=== PATIENT | female | born 1995 | race Caucasian/White ===

== ENCOUNTER 2024-11-16 15:34 | Observation (INO) | payer MEDICAID, SELFPAY ==
[2024-11-16] VITALS (60 sets, daily range): BP systolic 111–131; BP diastolic 64–93; PULSE 81–107; RESP 17–99; TEMP 36.9–37.1; O2SAT 97–100; BMI 22.7
--- NOTE | 2024-11-16 16:11 | XR_ITS ---
Examination: Complete OB ultrasound greater than 14 weeks Date and time of exam: November 16, 2024 1742 hrs. Indications: Labor evaluation, pelvic pain and pressure back pain beginning last night, diagnosis labor Findings: Viable intrauterine single fetus with single amniotic sac presentation cephalic spine maternal left Cardiac motion 150 BPM Placenta fundal grade 2 Umbilical cord insertion 3 vessel seen Amniotic fluid index 7.5 cm Mild hydronephrosis Ovaries obscured by bowel gas. Composite estimated gestational age based on BPD, head circumference, abdominal circumference, femur length is 34 weeks 0 days Estimated weight 2372.5 g. Survey of intracranial anatomy, spinal anatomy, abdominal anatomy, four-chamber heart performed with no abnormalities identified. Impression: Viable intrauterine gestation cephalic presentation Placenta fundal grade 2 no abruption Estimated gestational age 34 weeks 0 days Estimated weight 2372.5 g.
[2024-11-16] MEDS: TERBUTALINE SULF INJ 1 MG/ML VIAL 0.25 MG SC (16:27)
[2024-11-16] MEDS: BETAMET ACET/BETAMET NA PH (Celestone) 6 MG/ML VIAL 12 MG IM (16:28)
[2024-11-16] MEDS: Ampicillin Inj 2,000 MG in SODIUM CHLORIDE 0.9% (P) 100 ML 200 MG IV (16:29)
[2024-11-16 16:49] LABS: Basophils % (Auto) 0 % (0-2.5); Eosinophils % (Auto) 0 % (0-10); Hematocrit 36.7 % (36.0-46.0); Hemoglobin 12.9 g/dL (12.0-16.0); Immature Granulocytes % (Auto) 1 % (0-0); Immature Granulocytes Auto 0.06 Thou/mm3 (0.00-0.00); Lymphocytes # (Auto) 0.7 Thou/mm3 (1.0-4.8); Lymphocytes % (Auto) 12 % (10-50); Mean Corpuscular HGB Conc 35.1 g/dl (31.0-37.0); Mean Corpuscular Hemoglobin 32.1 pg (25.0-35.0); Mean Corpuscular Volume 91 fL (80-100); Monocytes # (Auto) 0.3 Thou/mm3 (0.0-0.8); Monocytes % (Auto) 4 % (0-12); Neutrophils # (Auto) 5.1 Thou/mm3 (1.8-7.7); Neutrophils % (Auto) 83 % (37-80); Nucleated Red Blood Cell % 0 /100 WBC (0); Platelet Count 201 Thou/mm3 (140-440); RDW Standard Deviation 40.8 fL (36.4-46.3); Red Blood Count 4.02 Miln/mm3 (4.00-5.20); White Blood Count 6.1 Thou/mm3 (3.6-11.0)
[2024-11-16] MEDS: RINGERS LACTATED 1000 ML 1,000 ML 999 ML IV (17:25)
[2024-11-16 17:26] LABS: Syphilis Nonreactive (Nonreactive)
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
[2024-11-16] MEDS: Ampicillin Inj 1,000 MG in SODIUM CHLORIDE 0.9% (P) 50 ML 50 MG IV (20:58)
[2024-11-16 23:40] LABS: Amphetamine/Metham Scrn,Ur OB Negative (Negative); Benzoylecgonine Screen, Ur OB Negative (Negative); Opiate Screen,Urine OB Negative (Negative); THC Screen,Urine OB Positive (Negative)
[2024-11-16 23:41] LABS: THC U Confirm* See Sep Rpt
[2024-11-17] VITALS (259 sets, daily range): BP systolic 90–119; BP diastolic 52–80; PULSE 64–107; RESP 16–18; TEMP 36.6–36.9; O2SAT 92–100
[2024-11-17] MEDS: Ampicillin Inj 1,000 MG in SODIUM CHLORIDE 0.9% (P) 50 ML 50 MG IV ×6 (01:00→22:00)
--- NOTE | 2024-11-17 04:08 | PD.LDPN ---
Documentation for date of: 11/17/24 OB Labor Progress Note Pain Control Comments: 29 yo at 34+5 presents with contractions and back pain. HD2 No acute events overnight No leaking of fluid, VB. normal movement. Still having irregular contractions on monitor. Reports some pelvic discomfort pain. Pelvic Exam Amniotic membrane status: Intact Contractions Monitor mode: External Contraction frequency: 3-5 Contraction intensity: Mild Status status: Category l Assessment and Plan Comments: 29 yo at 34+5 presents with contractions and back pain concerning for labor. HD2 contractions vs labor: - Repeat exam this AM dilation is similar but station lower and more applied with increased pelvic pressure - Continue abx prophylaxis for GBS unknown and status - collect GBS, urine culture/UA, GC/CT, routine PTL labs - s/p BMZ #1 for ALPS, #2 today at 1630 - IVF and continuous monitoring - Pediatrics aware FWB: Category 1, continuous monitoring EFW 2372g c/w dates Pyelectasis: plan for follow-up VSD: plan for follow-up, pediatrics aware weight US weight pending Marijuana, tobacco, and alcohol use in - utox +THC - no signs or symptoms of withdrawal for any substances (intermittent use) History of scoliosis: will FYI anesthesia. Patient with full ROM, no history of surgeries VTE PPx: ambulation
[2024-11-17] MEDS: FAMOTIDINE INJ 10 MG/ML VIAL 2 ML 20 MG IVP (05:50)
[2024-11-17] MEDS: ONDANSETRON INJ 2 MG/ML INJ 2 ML 4 MG IV (05:50)
[2024-11-17] MEDS: ACETAMINOPHEN 325 MG TABLET 650 MG PO (09:19)
[2024-11-17] MEDS: RINGERS LACTATED 1000 ML 1,000 ML 999 ML IV (11:17)
[2024-11-17 16:03] LABS: Chlamydia trachomatis PCR Negative (Not Detect); Neisseria Gonorrhoeae DNA PCR Negative (Not Detect); Trichomonas Negative (Negative)
[2024-11-17] MEDS: BETAMET ACET/BETAMET NA PH (Celestone) 6 MG/ML VIAL 12 MG IM (16:28)
[2024-11-18] VITALS (18 sets, daily range): BP systolic 98–118; BP diastolic 67–76; PULSE 71–97; RESP 18–20; TEMP 36.6–36.8; O2SAT 97–100
--- NOTE | 2024-11-18 08:07 | XR_ITS ---
Examination: Biophysical profile, ultrasound Date and time of exam: November 18, 2024 0823 hours INDICATIONS: Labor evaluation, pelvic contractions beginning 2 days ago, diagnosis labor Technique: Multiple transabdominal sonographic images of the pelvis abdomen obtained. Attention is directed to the breathing movement, gross body movement, amniotic fluid volume and tone. Findings: Amniotic fluid index 11.5 cm Total biophysical profile is 8 of 8. breathing movement is 2. Gross body movement is 2. tone is 2. Qualitative amniotic fluid volume is 2 Impression: Biophysical profile is 8 of 8.
--- NOTE | 2024-11-19 16:00 | PD.LDDS ---
DS: Providers Provider Date of admission: 11/17/24 17:06 Primary care physician: Physician No Primary/Family Admitting Provider: Amalia Pacheco MD Attending Provider on Admission: Chetan Valdes MD Attending Provider on DC: Chetan Valdes MD Discharging Provider: Chetan Valdes MD DS: Diagnosis Problem List Completed Was Problem List Reviewed/Reconciled?: Yes Summary/Hosp Course Brief History: 29 yo at 34w5d has been admitted for 2 days. patient denies feeling any contractions . Time Spent with Patient Time attestation: Total time spent providing and/or coordinating discharge services: Exam Vital Signs Temp Pulse Resp BP Pulse Ox 98.2 F 74 18 118/76 98 11/18/24 08:47 11/18/24 08:51 11/18/24 08:47 11/18/24 08:51 11/18/24 09:25 Constitutional Constitutional: no acute distress Routine HEENT Exam Head: Present normocephalic and atraumatic Eye: Present EOMI and PERRL ENT: Present mucous membranes moist Routine Neck Exam Neck: Present supple and trachea midline Routine Respiratory Exam Respiratory: Present chest non-tender, lungs clear, normal breath sounds and no resp distress Routine Cardiovascular Exam Cardiovascular: Present RRR Routine Abdominal Exam Abdominal: Present soft and normoactive bowel sounds Routine Exam Comments: Cat 1 FHT Cervix unchanged 2 cm , over past 24 hours BPP done 06/12( NST showed a variable, for which BPP was done) Routine Extremities Exam Extremities: Present full ROM Routine Skin Exam Skin: Present intact, dry and warm Routine Neurological Exam Neurological: Present alert, oriented X3 and CN II-XII intact Routine Psychiatric Exam Psychiatric: Present normal affect and normal thought process Discharge Plan Plan Patient Disposition: HOME (Self Care) Prescriptions/Referrals Prescriptions/Med Rec: No Action famotidine 40 mg tablet 40 mg PO QDAY Patient Comments: TAKE 1 TABLET BY MOUTH EVERY DAY FOR 30 DAYS PNV cmb#95-ferrous fumarate-FA [] 28 mg iron- 800 mcg tablet 1 tab PO QDAY Patient Comments: TAKE 1 TABLET BY MOUTH EVERY DAY FOR 90 DAYS ondansetron 8 mg Film Referrals: No Primary/Family,Physician [Primary Care Provider] - Patient/Caregiver Discharge Instructions Other Discharge Diet Instructions: Return on 11/20/24 for NST at [facility] Education Materials: Kick Counts, Understanding Labor, Antepartum Discharge Print Language: Romanian Stand Alone Forms: Nanci Award Info., Patient Portal Info Letter Discharge Order Discharge Orders: Discharge (Routine); Ordered 11/18/24 Ordered By: Chetan Valdes Planned Discharge Date 11/18/24
== END 2024-11-18 09:48 | disposition home or self-care (01) ==
PROVIDERS: Admitting Provider Obstetrics & Gynecology; Visit Provider Student in an Organized Health Care Education/Training Program
DX: O47.03 False labor before 37 completed weeks of gestation, third trimester (principal); O35.EXX0 Maternal care for other (suspected) fetal abnormality and damage, fetal genitourinary anomalies, not applicable or unspecified; Z3A.34 34 weeks gestation of pregnancy; O99.891 Other specified diseases and conditions complicating pregnancy; M41.9 Scoliosis, unspecified; O99.323 Drug use complicating pregnancy, third trimester; F12.90 Cannabis use, unspecified, uncomplicated; O99.333 Smoking (tobacco) complicating pregnancy, third trimester; F17.200 Nicotine dependence, unspecified, uncomplicated; O99.313 Alcohol use complicating pregnancy, third trimester; F10.90 Alcohol use, unspecified, uncomplicated; Z91.419 Personal history of unspecified adult abuse
CPT/HCPCS: 36415; 59025; 59899; 76805; 76819; 80307; 85025; 86780; 86850; 86900; 86901; 87081; 87491; 87591; 87661; 94762; 96361; 96365; 96366; 96372; 96375; G0378; J0290; J0702; J2405; J3105; J3490; J7050; J7120; A9270

== ENCOUNTER 2024-11-20 09:10 | Outpatient (CLI) | payer MEDICAID, SELFPAY ==
[2024-11-20] VITALS (13 sets, daily range): BP systolic 110; BP diastolic 82; PULSE 67–82; RESP 18–99; TEMP 36.7; O2SAT 98–100; BMI 24.5
== END 2024-11-20 10:15 | disposition home or self-care (01) ==
LOC: S4S1 09:11 → S4SX 09:11
PROVIDERS: Referring Provider Student in an Organized Health Care Education/Training Program; Visit Provider Student in an Organized Health Care Education/Training Program
DX: Z34.03 Encounter for supervision of normal first pregnancy, third trimester (principal); Z36.9 Encounter for antenatal screening, unspecified; Z3A.35 35 weeks gestation of pregnancy
CPT/HCPCS: 59025

== ENCOUNTER 2024-11-23 11:51 | Outpatient (CLI) | payer MEDICAID, SELFPAY ==
[2024-11-23 11:55] VITALS: BMI 24.1
[2024-11-23 12:01] VITALS: BP 111/77; PULSE 71
[2024-11-23 12:17] VITALS: BP 111/77; PULSE 71; RESP 18; RESP 99; TEMP 36.6
[2024-11-23 12:19] VITALS: TEMP 36.6
--- NOTE | 2024-11-23 14:04 | ESPR_ITS ---
Documentation for date of: 11/23/24 OB Labor Progress Note Pain Control Comments: 29 yo at 35+4 presents with decreased FM and contractions. c/b pyelectasis, VSD Hx of THC use in Patient was admitted last week for PTL vs PT contractions and discharged home after no advancing cervical dilation. Was given BMZ. No infectious symptoms, no LOF, no VB. Pelvic Exam Comments: Unchanged, 2cm same from last week at discharge Status Comments: BSUS: cephalic, DVP 4.2cm, anterior placenta Incidental BPP 8/8 FHT: normal baseline, no decels, reactive [place]: irritable -> quiet after PO hydration CNM Management Details of MD consultation: 29 yo at 35+4 presents with decreased FM and contractions, not in PTL and with normal testing. contractions - no signs of labor - precautions reviewed - s/p BMZ Decreased movement - Reactive NST - normal DVP - Incidental US BPP 8/8 - Precautions reviewed Follow-up with OBGYN this week
== END 2024-11-23 14:12 | disposition home or self-care (01) ==
LOC: S4S1 11:52 → S4SX 11:52
PROVIDERS: PCP Family Medicine; Referring Provider Obstetrics & Gynecology; Visit Provider Obstetrics & Gynecology
DX: O36.8130 Decreased fetal movements, third trimester, not applicable or unspecified (principal); O47.03 False labor before 37 completed weeks of gestation, third trimester; Z3A.35 35 weeks gestation of pregnancy
CPT/HCPCS: 59025

== ENCOUNTER 2024-12-09 05:02 | Inpatient (IN) | payer MEDICAID, SELFPAY ==
[2024-12-09] VITALS (30 sets, daily range): BP systolic 0–170; BP diastolic 0–100; PULSE 66–111; RESP 16–99; TEMP 36.4–36.8; O2SAT 99–100; BMI 25.3
[2024-12-09 05:45] LABS: ROM Kit Lot # 57809118
[2024-12-09 05:46] LABS: ROM Swab Mixed By: BDR; Rupture of Fetal Membranes Positive (Negative); Swb Mxed in Solvent 1 min? Yes
[2024-12-09] MEDS: RINGERS LACTATED 1000 ML 1,000 ML 125 ML IV ×2 (06:10→07:05)
[2024-12-09] MEDS: fentaNYL CIT INJ 50 mCg/ML AMP 2ML 100 MCG IV ×2 (06:28→08:07)
[2024-12-09 06:33] LABS: Basophils % (Auto) 0 % (0-2.5); Eosinophils % (Auto) 0 % (0-10); Hematocrit 39.1 % (36.0-46.0); Hemoglobin 13.9 g/dL (12.0-16.0); Immature Granulocytes % (Auto) 1 % (0-0); Immature Granulocytes Auto 0.11 Thou/mm3 (0.00-0.00); Lymphocytes # (Auto) 2.5 Thou/mm3 (1.0-4.8); Lymphocytes % (Auto) 25 % (10-50); Mean Corpuscular HGB Conc 35.5 g/dl (31.0-37.0); Mean Corpuscular Hemoglobin 33.1 pg (25.0-35.0); Mean Corpuscular Volume 93 fL (80-100); Monocytes # (Auto) 0.5 Thou/mm3 (0.0-0.8); Monocytes % (Auto) 5 % (0-12); Neutrophils # (Auto) 6.8 Thou/mm3 (1.8-7.7); Neutrophils % (Auto) 68 % (37-80); Nucleated Red Blood Cell % 0 /100 WBC (0); Platelet Count 212 Thou/mm3 (140-440); RDW Standard Deviation 42.1 fL (36.4-46.3)
[2024-12-09] MEDS: TERBUTALINE SULF INJ 1 MG/ML VIAL 0.25 MG SC (06:50)
[2024-12-09 07:05] LABS: Amphetamine/Metham Scrn,Ur OB Negative (Negative); Benzoylecgonine Screen, Ur OB Negative (Negative); Opiate Screen,Urine OB Negative (Negative); THC Screen,Urine OB Positive (Negative)
[2024-12-09 07:06] LABS: THC U Confirm* See Sep Rpt
[2024-12-09 07:09] LABS: Syphilis Nonreactive (Nonreactive)
[2024-12-09] MEDS: OXYTOCIN in NS 20 units 20 UNIT/1,000 ML BAG 125 UNIT IV (09:02)
[2024-12-09] MEDS: LIDOCAINE HCL 1% 20 ML VIAL INFL (09:05)
[2024-12-09] MEDS: BENZO/LANO/ALOE (Dermoplast) 60 GM CAN 1 SPRAY TOP (09:14)
[2024-12-09] MEDS: IBUPROFEN TAB 400 MG TABLET 800 MG PO (09:15)
--- NOTE | 2024-12-09 09:32 | OBDSUM_ITS ---
Data ([facility]) Data Hx Section: No : 1 Para: 0 Term: 0 : 0 : 0 Delivery Data ([facility]) Labor Data ROM Date: 12/09/24 ROM Time: 04:00 Rupture Type: SROM Amniotic Fluid: Clear Delivery Data Labor Onset Stage 1 Date: 12/09/24 Labor Onset Stage 1 Time: 08:06 Labor Onset Stage 2 Date: 12/09/24 Labor Onset Stage 2 Time: 08:46 Delivery Date: 12/09/24 Delivery Time: 08:58 Placenta Delivery Date: 12/09/24 Placenta Delivery Time: 09:02 Delivered by: Emilia Cooper Delivery nurse: Tricia Heller Other staff at delivery: 2nd Nurse Other staff at delivery: Nurse Other staff at delivery: RT Other staff at delivery: 2nd Nurse Other staff at delivery: Fadumo Villa Other staff at delivery: Bella Tian Other staff at delivery: [email or web address] Other staff at delivery: [email or web address] Delivery Method Delivery: Vaginal Delivery Type: Spontaneous Anesthesia Type Primary Anesthesia: Local Placenta Placenta Sent for Examination: Yes Cord Sample: Cord Blood Obtained EBL Estimated blood loss (ml): 250 Umbilical Cord Nuchal Cord: x1 Body Cord: x1 Additional Procedures Patient is a 29yo [id number] s/p uncomplicated at 37+6wk after presenting in active labor/with SROM, delivering at 0858 on 12/09/2024. On presentation, SCE was 3cm. She progressed without pitocin augmentation to C/C/0 at which point she began pushing. She declined epidural. With good maternal pushing efforts, infant's head delivered OA and restituted BERNABE. Tight nuchal cord could not be reduced, so delivered through. Left anterior shoulder delivered easily followed by posterior shoulder and corpus. Nuchal cord and nuchal arm unwrapped. Infant had spontaneous cry and was vigorous. Apgars 7/9. placed on maternal abdomen where nose/mouth were suctioned and dried/stimulated. After approximately 1 minute, cord was clamped x2 and cut by FOB. Cord blood collected for typing. With fundal massage and cord traction, placenta delivered spontaneously and intact with 3 vessel centrally inserted cord. Uterine massage performed and IV pitocin given per protocol with fundus then firm at u-2cm and hemostasis noted. Inspection of perineum and vagina revealed a right labial laceration (lip of labia popped apart) and small 1st degree midline laceration. These were both repaired in routine fashion after anesthetizing with 1% lidocaine with total reapproximation and hemostasis. Small trickle of blood, so sweep just within cervix was performed which retrieved a small clot with no further bleeding. All counts correct x2. Mom and were doing well when I left the room. Emilia Cooper MD [place] Data ([facility]) Data Infant Gender: Female Weight Grams: 2820 1 Minute Total: 7 5 Minute Total: 9
--- NOTE | 2024-12-09 10:06 | ESHP_ITS ---
Documentation for date of: 12/09/24 OB Labor/Induct. HPI History of Present Illness Chief complaint: painful ctx, leaking : 1 Para: 0 Term pregnancies: 0 pregnancies: 0 Living children: 0 History of Abortions: Spontaneous and Elective: 0 History of Vaginal deliveries: 0 History of sections: No History of : No Date of last menstrual period: 03/19/24 MARIBELL: 12/24/24 Gestational Age (weeks): 37 Gestational Age (days): 6 Gestational age based on last menstrual period: 37 History of present illness: Patient presents with regular/painful ctx. She notes having some leakage for past 3 days, unsure really when it started. No vaginal bleeding. Feels normal movement. History of Present Dating criteria: LMP confirmed by 1st trimester US Adequate Care: Yes Ultrasounds: abnormal US findings (Small 1cm VSD, Right pyelectasis 4.9mm) Obstetrical complications: other (THC use in early (UDS positive), tobacco use, VSD/right pyelectasis, severe constipation, persistent nausea/vomiting, GERD) Labs Labs: Negative: Hepatitis B, HIV, Chlamydia, Gonorrhea and Group Beta Strep Review of Systems Review of Systems Narrative Review of Systems: Review of Systems Systems Reviewed: All systems reviewed, normal except as documented Constitutional Constitutional: Denies body ache(s), Denies chills, Denies fever(s) and Denies headache(s) ENT Ears, Nose, Mouth, and Throat: Denies headache(s) and Denies vertigo Cardiovascular Cardiovascular: Denies chest pain, Denies palpitations, Denies dyspnea and Denies syncope Respiratory Respiratory: Denies cough, Denies dyspnea Gastrointestinal Gastrointestinal: Denies nausea and Denies vomiting Neurologic Neurologic: Denies convulsions, Denies headache(s), Denies other visual disturbances, Denies syncope and Denies vertigo Past Medical History Surgical History SURGICAL: Negative Section OTHER SURGICAL HX: foot surgery Social History SOCIAL: +Tobacco. +THC in early . No ETOH or other drug use. Past Medical History Comments PMH COMMENT: Childhood asthma Tobacco use Scoliosis Vitamin D deficiency Dyspareunia Anxiety/depression Meds Home Medications and Allergies Home Medications ?Medication ?Instructions ?Recorded ?Confirmed ?Type famotidine 40 mg tablet 40 mg PO QDAY 11/16/2412/09 History vit no.95-ferrous 1 tab PO QDAY 11/16/24 02/0 02/27 History fumarate 28 mg-folic acid 800 mcg tablet () ondansetron 8 mg oral soluble film 8 mg PO QDAY 12/09/24 History Allergies Allergy/AdvReac Type Severity Reaction Status Date / Time codeine Allergy Severe hives and Verified 12/09/24 05:20 throat closes OB Exam Physical Exam Vital signs: Temp Pulse Resp BP Pulse Ox 97.7 F 88 18 125/61 99 12/09/24 09:30 12/09/24 10:04 12/09/24 09:30 12/09/24 10:12/09/24 05:09 Narrative: General: well developed, well nourished, no acute distress, conversant Cardiac: normal heart rate Lungs: breathing without distress Abdomen: soft, gravid, non-tender, no rebound or guarding Extremities: no edema of BLE Detailed Labor and Delivery Exam Dilation (cm): 3 Effacement (%): 60 Cervix position: mid station: -2 Consistency: soft Presentation: Vertex Membranes: ruptured Amniotic fluid: clear monitor accelerations: 15x15 monitor decelerations: None watermelon harvesting supervisor variability: Moderate (11-25) Contraction frequency (min): 1-2 minutes OB Results Labs 12/09/24 06:00 Labs: Short CBC 12/09/24 Range/Units 06:00 WBC 10.0 (3.6-11.0) Thou/mm3 Hgb 13.9 (12.0-16.0) g/dL Hct 39.1 (36.0-46.0) % Plt Count 212 (140-440) Thou/mm3 OB Assessment & Plan Assessment and Plan (1) Active labor at term: Status: Acute Assessment and plan: Patient is a 29yo G1 with SIUP at 37+6wk presenting in active labor. Regular/painful contractions, SCE: 3/60/-2. SROM, uncertain when (stated hx leaking 3 days )- amnisure is positive. Vitals wnl, benign exam. Reassuring assessment. PMhx/ complicated by: Tobacco use +THC in early 1hr glucola 138 VSD and right pyelectasis 4.9mm- needs echo and renal ultrasound after delivery Peristent n/v/GERD and constipation Plan: -Admit to L&D -Establish IV, routine labs -CEFM -Clear liquid diet -Assistant Press Operator/consent re: -GBS status: negative -Anticipate -Safe to proceed (2) SROM (spontaneous rupture of membranes): Status: Acute (3) Marijuana use during : Status: Acute (4) Tobacco use affecting in third trimester, antepartum: Status: Acute (5) Pyelectasis of fetus on ultrasound: Status: Acute
[2024-12-09] MEDS: ACETAMINOPHEN 325 MG TABLET 650 MG PO (15:50)
[2024-12-10] VITALS: BP 106/66; PULSE 74; RESP 18; TEMP 36.7; O2SAT 97
[2024-12-10] MEDS: IBUPROFEN TAB 400 MG TABLET 800 MG PO (01:39)
[2024-12-10 04:00] VITALS: BP 120/79; PULSE 68; RESP 18; TEMP 36.6; O2SAT 100
--- NOTE | 2024-12-10 05:18 | PC.NURSE ---
12/10/24 0515: High Risk Referral completed for Substance Exposure Program, faxed to [facility] and placed in mothers physical chart.
[2024-12-10 06:14] LABS: Basophils % (Auto) 0 % (0-2.5); Eosinophils % (Auto) 0 % (0-10); Hemoglobin 10.4 g/dL (12.0-16.0); Immature Granulocytes % (Auto) 1 % (0-0); Immature Granulocytes Auto 0.09 Thou/mm3 (0.00-0.00); Lymphocytes # (Auto) 1.7 Thou/mm3 (1.0-4.8); Lymphocytes % (Auto) 18 % (10-50); Mean Corpuscular HGB Conc 33.5 g/dl (31.0-37.0); Mean Corpuscular Hemoglobin 31.1 pg (25.0-35.0); Mean Corpuscular Volume 93 fL (80-100); Monocytes # (Auto) 0.6 Thou/mm3 (0.0-0.8); Monocytes % (Auto) 6 % (0-12); Neutrophils # (Auto) 7.6 Thou/mm3 (1.8-7.7); Neutrophils % (Auto) 76 % (37-80); Nucleated Red Blood Cell % 0 /100 WBC (0); Platelet Count 159 Thou/mm3 (140-440); RDW Standard Deviation 41.1 fL (36.4-46.3); Red Blood Count 3.34 Miln/mm3 (4.00-5.20)
[2024-12-10 08:00] VITALS: BP 123/75; PULSE 72; RESP 17; TEMP 36.6; O2SAT 100
[2024-12-10] MEDS: ACETAMINOPHEN 325 MG TABLET 650 MG PO (08:20)
[2024-12-10] MEDS: FAMOTIDINE 20 MG TABLET 40 MG PO (08:20)
--- NOTE | 2024-12-10 09:07 | ESDS_ITS ---
DS: Providers Provider Date of admission: 12/09/24 05:46 Primary care physician: Physician No Primary/Family Admitting Provider: Emilia Cooper MD Attending Provider on Admission: Emilia Cooper MD Consults: 12/09/24 09:52 Referral Routine Comment: Attending Provider on DC: Emilia Cooper MD Discharging Provider: Emilia Cooper MD DS: Diagnosis Discharge Diagnosis (1) SROM (spontaneous rupture of membranes): Status: Acute (2) Active labor at term: Status: Acute (3) Tobacco use affecting in third trimester, antepartum: Status: Acute (4) Marijuana use during : Status: Acute Problem List Completed Was Problem List Reviewed/Reconciled?: Yes Summary/Hosp Course Brief History: Patient is a 29yo [id number] s/p uncomplicated at 37+6wk after presenting in active labor/with SROM, delivering at 0858 on 12/09/2024. She has had an uncomplicated course, meeting all milestones and feels ready for discharge home. She is ambulating without lightheadedness, tolerating regular diet no n/v, spontaneously voiding without issue. She has no chest pain or shortness of breath. No fevers or chills. Minimal, appropriate discomfort. Vitals normal, benign exam. Hemodynamically stable with no evidence of infection. PP Hgb 10.4. Status at Discharge Functional status at discharge: independent ambulation Overall status at discharge: patient is back to baseline Time Spent with Patient Time attestation: Total time spent providing and/or coordinating discharge services: Time spent: Less than 30 minutes Exam Vital Signs Temp Pulse Resp BP Pulse Ox O2 Del Method 97.8 F 72 17 123/75 100 Room Air 12/10/24 08:00 12/10/24 08:00 12/10/24 08:00 12/10/24 08:00 12/10/24 08:00 12/10/24 08:00 Narrative Exam General: well developed, well nourished, no acute distress, conversant Cardiac: normal heart rate Lungs: breathing without distress Abdomen: soft, post-gravid, non-tender, no rebound or guarding, Fundus firm at u-3cm. Extremities: no pain with palpation of calves, trace edema of BLE Discharge Plan Plan Patient Disposition: HOME (Self Care) Patient condition on transfer: Stable Prescriptions/Referrals Prescriptions/Med Rec: New ibuprofen 800 mg tablet 800 mg PO Q8H PRN (Reason: See Comments) 10 Days Qty: 30 0RF docusate sodium [Colace] 100 mg capsule 100 mg PO BID Qty: 20 0RF Continued famotidine 40 mg tablet 40 mg PO QDAY Patient Comments: TAKE 1 TABLET BY MOUTH EVERY DAY FOR 30 DAYS PNV cmb#95-ferrous fumarate-FA [] 28 mg iron- 800 mcg tablet 1 tab PO QDAY Patient Comments: TAKE 1 TABLET BY MOUTH EVERY DAY FOR 90 DAYS ondansetron 8 mg Film 8 mg PO QDAY Referrals: No Primary/Family,Physician [Primary Care Provider] - Patient/Caregiver Discharge Instructions Discharge Activity: activity as tolerated and other Other Discharge Activity Instructions:: Vaginal rest and no heavy lifting greater than 10 pounds for 6 weeks. Other Discharge Diet Instructions: Regular diet Education Materials: After a Vaginal Print Language: Portuguese Activity Restrictions/Additional Instructions: Follow up in 4 weeks for visit, call clinic to schedule. Stand Alone Forms: Nanci Award Info., Patient Portal Info Letter Discharge Order Discharge Orders: Discharge (Routine); Ordered 12/10/24 Ordered By: Emilia Cooper Planned Discharge Date 12/10/24
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
--- NOTE | 2024-12-10 16:03 | PC.SS ---
CWS report submitted verbally to Jillian Davey. Written report submitted via e-mail.
== END 2024-12-10 13:18 | disposition home or self-care (01) | DRG 560 ==
LOC: S4SX 09:15 → S4NX 11:27
PROVIDERS: Admitting Provider Obstetrics & Gynecology; Visit Provider Obstetrics & Gynecology
DX: O35.BXX0 Maternal care for other (suspected) fetal abnormality and damage, fetal cardiac anomalies, not applicable or unspecified (principal); O35.EXX0 Maternal care for other (suspected) fetal abnormality and damage, fetal genitourinary anomalies, not applicable or unspecified; O99.324 Drug use complicating childbirth; F12.90 Cannabis use, unspecified, uncomplicated; Z37.0 Single live birth; Z3A.37 37 weeks gestation of pregnancy; O69.1XX0 Labor and delivery complicated by cord around neck, with compression, not applicable or unspecified; O69.82X0 Labor and delivery complicated by other cord entanglement, without compression, not applicable or unspecified; O99.62 Diseases of the digestive system complicating childbirth; K21.9 Gastro-esophageal reflux disease without esophagitis; O99.334 Smoking (tobacco) complicating childbirth; F17.290 Nicotine dependence, other tobacco product, uncomplicated; O70.0 First degree perineal laceration during delivery
CPT/HCPCS: 36415; 59025; 59409; 80307; 84112; 85025; 86780; 86850; 86900; 86901; 94762; J2590; J3010; J3105; J3490; J7120; A9270

== ENCOUNTER 2024-12-20 21:22 | Emergency (ER) | payer MEDICAID, SELFPAY ==
[2024-12-20 21:23] VITALS: BMI 22.3
[2024-12-20 23:02] VITALS: BP 121/86; PULSE 68; RESP 20; TEMP 36.7; O2SAT 98
--- NOTE | 2024-12-20 23:33 | PD.EDWOUND ---
ED Wound/Laceration-RME/HPI General Chief Complaint: Wound/Laceration Stated Complaint: LACERATION Time Seen by Provider: 12/20/24 21:33 Arrival date/time: 12/20/24 21:22 29-year-old female who is day 11 with sutures to the vagina from the reports with complaints of sutures coming out and she is noticing a small opening in the vagina that concerned her. She does not have any bleeding no discharge but she does complain of pain. She denies fever chills nausea or vomiting weakness or fatigue Limitations: no limitations Related Data Home Medications ?Medication ?Instructions ?Recorded ?Confirmed famotidine 40 mg tablet 40 mg PO QDAY 11/16/24 12/09/24 vit no.95-ferrous 1 tab PO QDAY 11/16/24 12/09/24 fumarate 28 mg-folic acid 800 mcg tablet () ondansetron 8 mg oral soluble film 8 mg PO QDAY 11/17/24 12/09/24 Previous Rx's ?Medication ?Instructions ?Recorded docusate sodium 100 mg capsule 100 mg PO BID #20 caps 12/10/24 (Colace) Allergies Allergy/AdvReac Type Severity Reaction Status Date / Time codeine Allergy Severe hives and Verified 12/20/24 21:26 throat closes Review of Systems Constitutional Constitutional: Denies chills and Denies fever(s) Genitourinary Genitourinary: Denies abnormal menses and Denies vaginal discharge Comments: vaginal laceration from giving Integumentary/Breasts Skin/Breast: Denies unusual bruising and Denies wounds ED Exam General Limitations: Present no limitations General appearance: Present alert and in no apparent distress External exam: Present other (superfical laceration to the right labia manora mildly ttp but no evidence of infeciton, vagina otherwise unremarkable) Neurological Exam Neurological exam: Present alert, oriented X3 and CN II-XII intact Psychiatric Psychiatric exam: Present normal affect and normal mood Skin Skin exam: Present warm, dry, intact and normal color Course Quality Measures none Vital Signs Vital signs: Vital Signs Temperature 98.0 F 12/20/24 23:02 Pulse Rate 68 12/20/24 23:02 Respiratory Rate 20 12/20/24 23:02 Blood Pressure 121/86 H 12/20/24 23:02 Pulse Oximetry (%) 98 12/20/24 23:02 Oxygen Delivery Method Room Air 12/20/24 23:02 Wound / Laceration Patient data External records reviewed:: None Clinical information provided by:: patient Social determinants that could affect healthcare access:: none Patient has the following chronic illnesses:: none How is presenting disease/condition affected by chronic disease/condition?: no chronic disease Evaluation data The following diagnostics were reviewed and interpreted by me:: other (specify) (none) Lab and/or radiology exams considered but not ordered:: n/a Interpretation Summary: n/a Medications / Prescriptions Medications or Prescriptions considered but not ordered:: none Medication administrations:: none Consultations Consultation(s) initiated? (list below): No Diagnosis Wound Differential Diagnosis: laceration, abrasion and avulsion of skin Most likely diagnosis given after review of the tests above:: Obstetric vaginal laceration Admission Indicated Admission indicated?: not indicated Admission Request Was there a request for admission?: No Disposition Plan Disposition Plan: Discharge Discharge Attestation Discharge Attestation: The patient and all family members were given an opportunity to ask questions and understood the discharge instructions. Discharge instructions specifically effects, indications for sooner follow up or return to the emergency department, and the expected course of current diagnosis. Patient condition: Stable Discharge Plan Plan Patient Disposition: HOME (Self Care) Prescriptions/Referrals Prescriptions/Med Rec: No Action docusate sodium [Colace] 100 mg capsule 100 mg PO BID Qty: 20 0RF famotidine 40 mg tablet 40 mg PO QDAY Patient Comments: TAKE 1 TABLET BY MOUTH EVERY DAY FOR 30 DAYS PNV cmb#95-ferrous fumarate-FA [] 28 mg iron- 800 mcg tablet 1 tab PO QDAY Patient Comments: TAKE 1 TABLET BY MOUTH EVERY DAY FOR 90 DAYS ondansetron 8 mg Film 8 mg PO QDAY Problem List Clinical Impression: Obstetric vaginal laceration Patient/Caregiver Discharge Instructions Discharge Activity: activity as tolerated Education Materials: Incision Care After Vaginal Additional Instructions: keep area clean, take warm baths with Epsom salt to help with swelling and healing, follow up with OBGYN in 24-48 hours. Return to ED if symptoms worsen Print Language: Urdu Stand Alone Forms: [facility]i Award Info., Patient Portal Info Letter
== END 2024-12-20 23:58 | disposition home or self-care (01) ==
LOC: SERX 12-21 00:03
PROVIDERS: Emergency Provider Emergency Medicine; PCP Family Medicine
DX: O71.4 Obstetric high vaginal laceration alone (principal)
CPT/HCPCS: 99281

== ENCOUNTER → 2025-10-21 | Outpatient (CLI) | payer MEDICAID, SELFPAY ==
--- NOTE | 2025-10-21 07:50 | XR_ITS ---
Examination: CT brain head without contrast. 2-D sagittal coronal reconstructions Date and time of exam: October 21, 2025, 0755 hours INDICATION: Dizziness beginning 10 months ago CTDI: vol (mGy): 44.5 DLP: (mGycm): 830 Technique: Multiple CT axial sections of the brain have been obtained, 5 mm slice thickness. Contrast has not been administered. 2-D sagittal, coronal reconstructions have been obtained Low dose protocols were performed. One or more of the following dose reduction techniques were used; automated exposure control, adjustment of the mA and/or KV according to patient size, use of iterative reconstruction technique. Findings: No significant ventricular enlargement. Intra-axial or extra-axial hemorrhage density is not seen. No mass effect or midline shift Basal cisterns are not remarkable. Fourth ventricle is midline. Cranial vault intact. Impression: Negative for acute hemorrhage, mass effect or midline shift If symptoms persist, consider brain MRI MRA without contrast follow-up
== END | disposition home or self-care (01) ==
LOC: CDIM 07:16
PROVIDERS: PCP Family Medicine; Referring Provider Family Medicine; Visit Provider Family Medicine
DX: R42 Dizziness and giddiness (principal)
CPT/HCPCS: 70450